=== PATIENT | male | born 1975 | race Caucasian/White ===

== ENCOUNTER 2024-07-10 06:13 | Day surgery (SDC) | payer OTHER, SELFPAY ==
[2024-07-10 11:34] LABS: COVID-19 Antigen Negative (Negative)
== END 2024-07-10 13:41 | disposition home or self-care (01) ==
LOC: GI 06:13
PROVIDERS: ATTENDING PHYSICIAN Internal Medicine
DX: Z12.11 Encounter for screening for malignant neoplasm of colon (principal); K57.30 Diverticulosis of large intestine without perforation or abscess without bleeding; D12.0 Benign neoplasm of cecum
CPT/HCPCS: 45385; 88305; 87502; 87811